=== PATIENT | male | born 1950 | race Caucasian/White ===

== ENCOUNTER 2024-10-21 15:03 | Emergency (ER) | payer MEDICARE, SELFPAY ==
[2024-10-21 15:21] VITALS: BP 126/72; PULSE 69; RESP 16; TEMP 36.7; O2SAT 96; BMI 28.7
--- NOTE | 2024-10-21 16:18 | ED.GENADULT ---
HPI - General Adult General Chief complaint: GI Bleed Stated complaint: Black stool Time Seen by Provider: 10/21/24 15:42 Source: patient Mode of arrival: ambulatory Limitations: no limitations History of Present Illness HPI narrative: 74-year-old male presenting today with black stools have been going on for 1 month. Patient denies diarrhea or constipation. He denies feeling dizzy, lightheaded. He denies chest pain or shortness of breath. Patient states that he has a history of chronic anemia and started iron tablets approximately 1 month ago. He denies any bright red blood per rectum. Last colonoscopy was 2 years ago and he had polyps, 2 year repeat was recommended so he is due for 1. Patient is on Eliquis for atrial fibrillation. Related Data Home Medications ?Medication ?Instructions ?Recorded ?Confirmed Eliquis 5 mg BID 10/21/24 flecainide 100 mg BID 10/21/24 lisinopril 40 mg DAILY 10/21/24 metoprolol tartrate 25 mg tablet 12.5 mg PO BID 10/21/24 10/21/24 omeprazole 40 mg BID 10/21/24 Allergies Allergy/AdvReac Type Severity Reaction Status Date / Time No Known Drug Allergies Allergy Verified 10/21/24 15:26 Review of Systems Status of ROS: Reports: 10 or more systems reviewed and unremarkable except as noted in History and below PFSH [facility] Social History Smoking Status: Never smoker How often do you have a drink containing alcohol: 2-3 times a week AUDIT-C Alcohol total score: 3 Non-prescribed substance use: denies use Exam Narrative: Exam Narrative: Well-nourished well-developed patient in no acute distress. Alert and oriented. Answers questions appropriately. Mood and affect are appropriate. Thoughts are goal oriented and rational. No tangential or magical thinking noted. Patient speaks in full sentences without needing to catch his breath. HEENT: Normocephalic atraumatic. Pupils are equally round reactive to light. Extraocular muscles are intact. Conjunctivae are moist without any icterus noted. Moist mucous membranes. Cardiovascular: Heart is regular rate and rhythm. Lungs: Clear to auscultation bilaterally. Abdomen: Soft and nontender nondistended with normal bowel sounds. Skin: Well perfused without any obvious rashes. Rectal exam reveals normal rectal tone. No significant amount of stool in the rectal vault. Very little amount of stool noted was dark black. Const: Vital Signs, click to edit/add: Vital Signs - 24 hr 10/21/24 15:21 Temperature 98.1 F Pulse Rate [Left P ulse Oximeter] 69 Respiratory Rate 16 Blood Pressure [Ri ght Upper Arm] 126/72 Pulse Oximetry 96 Oxygen Delivery Me thod Room Air Course Course ED Course: He CBC unremarkable. Hemoglobin 13.3. Fecal occult testing is positive. We did go ahead and proceed with 80 mg of IV Protonix. Vital Signs Vital signs: Initial Vital Signs Temperature 98.1 F 10/21/24 15:21 Temperature Source Oral 10/21/24 15:21 Pulse Rate 69 10/21/24 15:21 Respiratory Rate 16 10/21/24 15:21 Blood Pressure 126/72 10/21/24 15:21 Blood Pressure Mean 90 10/21/24 15:21 Blood Pressure Position Sitting 10/21/24 15:21 Pulse Oximetry 96 10/21/24 15:21 Oxygen Delivery Method Room Air 10/21/24 15:21 Vital Signs Temperature 98.1 F 10/21/24 15:21 Pulse Rate 69 10/21/24 15:21 Respiratory Rate 16 10/21/24 15:21 Blood Pressure 126/72 10/21/24 15:21 Pulse Oximetry 96 10/21/24 15:21 Oxygen Delivery Method Room Air 10/21/24 15:21 Temperature 98.1 F 10/21/24 15:21 Pulse Rate 69 10/21/24 15:21 Respiratory Rate 16 10/21/24 15:21 Blood Pressure 126/72 10/21/24 15:21 Pulse Oximetry 96 10/21/24 15:21 Oxygen Delivery Method Room Air 10/21/24 15:21 Medications Administered Medications: Discontinued Medications Generic Name Dose Route Start Last Admin Trade Name Freq PRN Reason Stop Dose Admin Pantoprazole Sodium 80 mg 10/21/24 16:34 10/21/24 16:50 Pantoprazole Sodium 40 Mg Inj IVP 10/21/24 16:35 80 mg ONCE ONE Administration Medical Decision Making MDM Narrative Medical decision making narrative: 74-year-old male with GI bleeding. Given that this has been going on for a month, we discussed our next steps which would include admission and scope in the morning versus going home and having a scope where he generally has a scopes done. Patient prefers the 2nd option. Given that he is stable and again this is going on for so long I think that is acceptable route to take. If he starts to having increased stool output or develops symptoms such as dizziness, lightheadedness or chest pain he needs to return to the emergency department. He will call his primary care provider 1st thing in the morning and see if he can get his colonoscopy set up sooner. Also recommend EGD. He does have 1 scheduled in December. We will not stop his Eliquis at this time given that the patient is so stable. Lab Data Lab results reviewed: Yes I reviewed the patient's lab results Labs: Lab Results 10/21/24 10/21/24 Range/Units 16:05 16:09 WBC 4.87 (4.50-11.00) K/uL RBC 4.34 (4.30-5.90) m/uL Hgb 13.3 L (13.5-17.5) gm/dL Hct 41.7 (37.0-53.0) % MCV 96 (80-100) fL MCH 31 (26-34) pg MCHC 32 (32-36) gm/dL RDW Coeff of Simi 13.0 (11.5-15.5) % Plt Count 264 (140-440) K/uL Neut % (Auto) 48.9 (42.0-72.0) % Lymph % (Auto) 39.8 (20-44) % [place] % (Auto) 7.6 (0.0-11.0) % Eos % (Auto) 3.1 (0.0-7.0) % Baso % (Auto) 0.6 (0.0-3.0) % Neut # (Auto) 2.38 (1.7-7.0) K/uL Lymph # (Auto) 1.94 (0.90-2.90) K/uL [place] # (Auto) 0.40 (0.00-0.90) K/UL Eos # (Auto) 0.15 (0.00-0.50) K/uL Baso # (Auto) 0.03 (0.00-0.30) K/uL Abs Immat Gran (auto) 0.00 (0.00-0.30) K/uL Imm/Tot Granulo (auto) 0.0 % Stool Occult Blood Positive (Negative) Discharge Plan Discharge Clinical Impression: GI bleed Additional Instructions: Call your doctor 1st thing in the morning to tele that you were evaluated in the emergency department and that your stool test came back positive for blood. It is recommended that you have an upper endoscopy and colonoscopy done as soon as possible. Return to the emergency department if you have increased stool output, you become dizzy or lightheaded, you develop chest pain or shortness of breath. Because you are stable and your hemoglobin is not dropping, we will not start your Eliquis at this time. Prescriptions: No Action flecainide 100 mg BID Eliquis 5 mg BID lisinopril 40 mg DAILY omeprazole 40 mg BID metoprolol tartrate 25 mg tablet 12.5 mg PO BID Stand Alone Forms: [employer] Info Instructions
[2024-10-21 16:26] LABS: Basophils Absolute Auto 0.03 K/uL (0.00-0.30); Basophils Percent Auto 0.6 % (0.0-3.0); Eosinophils Absolute Auto 0.15 K/uL (0.00-0.50); Eosinophils Percent Auto 3.1 % (0.0-7.0); Hematocrit 41.7 % (37.0-53.0); Hemoglobin* 13.3 gm/dL (13.5-17.5); Lymphocytes Absolute Auto 1.94 K/uL (0.90-2.90); Lymphocytes Percent Auto 39.8 % (20-44); Mean Corpuscular HGB Conc 32 gm/dL (32-36); Mean Corpuscular Hemoglobin 31 pg (26-34); Mean Corpuscular Volume 96 fL (80-100); Monocytes Percent Auto 7.6 % (0.0-11.0); Neutrophils Absolute Auto 2.38 K/uL (1.7-7.0); Neutrophils Percent Auto 48.9 % (42.0-72.0); Platelet Count* 264 K/uL (140-440); Red Blood Count 4.34 m/uL (4.30-5.90); White Blood Count* 4.87 K/uL (4.50-11.00)
[2024-10-21 16:28] LABS: Slide Review Reflex No
[2024-10-21 16:31] LABS: Fecal Occult Blood* Positive (Negative)
[2024-10-21] MEDS: PANTOPRAZOLE SODIUM 40 MG INJ 80 MG IVP (16:50)
== END 2024-10-21 17:29 | disposition home or self-care (01) ==
PROVIDERS: Emergency Provider Family Medicine
DX: K92.2 Gastrointestinal hemorrhage, unspecified (principal)
CPT/HCPCS: 36415; 82270; 85025; 96374; 99284; J2470